=== PATIENT | male | born 1940 | race Caucasian/White ===

== ENCOUNTER 2021-10-14 16:43 | Observation (INO) | payer MEDICARE, OTHER ==
[2021-10-14] MEDS ORDERED: Midazolam 1 MG/ML 2 ML SDV ONE ×2 (16:45→16:53)
[2021-10-14] MEDS ORDERED: levETIRAcetam 1,000 MG in Sodium Chloride 0.9% 100 ML IV ONE (17:00)
[2021-10-14] MEDS ORDERED: Sodium Chloride 0.9% 100 ML IV SCH (17:15)
[2021-10-14] MEDS ORDERED: Midazolam 1 MG/ML 2 ML SDV IVPUSH ONE ×2 (17:15→17:16)
[2021-10-14] MEDS ORDERED: Sodium Chloride 0.9% 10 ML Syringe FLUSH PRN (17:15)
[2021-10-14] MEDS ORDERED: Iopamidol 755 Mg/ML 100 ML Bottle IVPUSH ONE (17:15)
[2021-10-14 17:39] LABS: ESTIMATED GFR 56 mL/min (>60)
[2021-10-14] MEDS ORDERED: Metoprolol Tartrate 50 MG Tab PO SCH (23:45)
[2021-10-15] MEDS ORDERED: traZODone 50 MG Tab PO ONE (00:07)
[2021-10-15] MEDS ORDERED: Docusate Sodium 100 MG Cap PO PRN (07:14)
[2021-10-15] MEDS ORDERED: guaiFENesin 600 MG Tab.ER PO PRN (07:14)
[2021-10-15] MEDS: atorvaSTATin 40 MG Tab PO SCH (08:41)
[2021-10-15] MEDS: Multivitamins with Minerals/Folic Acid/Lutein/Zeaxanth Tab PO SCH (08:41)
[2021-10-15] MEDS: Sertraline 50 MG Tab PO SCH (08:42)
[2021-10-15] MEDS: Aspirin 81 MG Tab.EC PO SCH (08:42)
[2021-10-15] MEDS: Metoprolol Tartrate 50 MG Tab PO SCH ×2 (08:42→20:16)
[2021-10-15] MEDS: Apixaban 5 MG Tab PO SCH ×2 (08:42→20:16)
[2021-10-15] MEDS: Finasteride 5 MG Tab PO SCH (08:42)
[2021-10-15] MEDS: Tamsulosin 0.4 MG Cap.ER PO SCH (08:42)
[2021-10-15] MEDS: Acetaminophen 325 MG Tab PO SCH ×2 (08:45→20:17)
[2021-10-15] MEDS ORDERED: traZODone 50 MG Tab PO SCH (21:00)
[2021-10-15] MEDS ORDERED: Melatonin 3 MG Tab PO PRN (21:00)
[2021-10-16] MEDS: Metoprolol Tartrate 50 MG Tab PO SCH (08:01)
[2021-10-16] MEDS: Acetaminophen 325 MG Tab PO SCH (08:01)
[2021-10-16] MEDS: Sertraline 50 MG Tab PO SCH (08:02)
[2021-10-16] MEDS: Multivitamins with Minerals/Folic Acid/Lutein/Zeaxanth Tab PO SCH (08:02)
[2021-10-16] MEDS: Finasteride 5 MG Tab PO SCH (08:02)
[2021-10-16] MEDS: Apixaban 5 MG Tab PO SCH (08:02)
[2021-10-16] MEDS: atorvaSTATin 40 MG Tab PO SCH (08:02)
[2021-10-16] MEDS: Tamsulosin 0.4 MG Cap.ER PO SCH (08:02)
[2021-10-16] MEDS: Aspirin 81 MG Tab.EC PO SCH (08:02)
== END 2021-10-16 11:52 | disposition home or self-care (01) ==
LOC: JD.ED 16:43 → INTOOBSV 19:18 → JD.MS 19:18
PROVIDERS: ADMIT Internal Medicine Cardiovascular Disease; ATTEND Internal Medicine Cardiovascular Disease
DX: R55 Syncope and collapse (principal); I10 Essential (primary) hypertension; E78.00 Pure hypercholesterolemia, unspecified; H54.7 Unspecified visual loss; I48.91 Unspecified atrial fibrillation; F32.A Depression, unspecified; R56.9 Unspecified convulsions; Z86.73 Personal history of transient ischemic attack (TIA), and cerebral infarction without residual deficits; Z79.82 Long term (current) use of aspirin; Z79.01 Long term (current) use of anticoagulants; N40.0 Benign prostatic hyperplasia without lower urinary tract symptoms
CPT/HCPCS: 36415; 70450; 70496; 70498; 80048; 80053; 80061; 83735; 85025; 85610; 87641; 93005; 96365; 96375; 97163; 99285; A9270; J1953; J2250; Q9967; 93010; 99291; G0378

== ENCOUNTER 2022-05-01 20:45 | Emergency (ER) | payer MEDICARE, OTHER ==
[2022-05-01] MEDS ORDERED: HYDROmorphone 0.5 MG/0.5 ML Syringe IVPUSH ONE ×3 (21:07→22:53)
[2022-05-01] MEDS ORDERED: Metoclopramide 10 MG/2 ML SDV IVPUSH ONE (21:07)
[2022-05-01] MEDS ORDERED: Hyoscyamine 0.125 MG Tab.SL SL ONE (21:09)
[2022-05-01] MEDS ORDERED: Dextrose 5%-0.9% NaCl 1,000 ML IV SCH (21:15)
[2022-05-01 21:48] LABS: ESTIMATED GFR 68 mL/min (>60)
[2022-05-02] MEDS ORDERED: HYDROmorphone 0.5 MG/0.5 ML Syringe IVPUSH ONE (00:02)
[2022-05-02] MEDS ORDERED: LORazepam 2 MG/ML SDV IVPUSH ONE ×4 (01:08→14:13)
[2022-05-02] MEDS ORDERED: Morphine 4 MG/ML Syringe IVPUSH ONE ×2 (02:53→05:05)
[2022-05-02] MEDS ORDERED: Metoclopramide 10 MG/2 ML SDV IVPUSH ONE (02:54)
[2022-05-02] MEDS ORDERED: cefTRIAXone 2 GM in Sodium Chloride 0.9% 100 ML IV ONE (07:29)
[2022-05-02] MEDS ORDERED: OLANZapine 5 MG Tab PO ONE (08:42)
[2022-05-02] MEDS ORDERED: HYDROmorphone 1 MG/ML Syringe IVPUSH ONE ×2 (09:27→14:13)
[2022-05-02] MEDS ORDERED: Ondansetron 4 MG/2 ML SDV IVPUSH ONE (09:28)
[2022-05-02] MEDS ORDERED: Sodium Chloride 0.9% 1,000 ML IV SCH (16:00)
== END 2022-05-02 16:40 ==
LOC: JD.ED 20:45
DX: K81.9 Cholecystitis, unspecified (principal); I48.91 Unspecified atrial fibrillation; E78.00 Pure hypercholesterolemia, unspecified; I10 Essential (primary) hypertension; N40.0 Benign prostatic hyperplasia without lower urinary tract symptoms; M19.90 Unspecified osteoarthritis, unspecified site; Z86.73 Personal history of transient ischemic attack (TIA), and cerebral infarction without residual deficits; Z79.01 Long term (current) use of anticoagulants; Z79.82 Long term (current) use of aspirin; Z79.899 Other long term (current) drug therapy; Z20.822 Contact with and (suspected) exposure to COVID-19
CPT/HCPCS: 36415; 71045; 74176; 76705; 80053; 81001; 82553; 82977; 83605; 83690; 83735; 83880; 84484; 85025; 85610; 85730; 86140; 87086; 93005; 96361; 96365; 96375; 96376; 99285; A9270; J0696; J1170; J2060; J2270; J2405; J2765; J7030; J7042; U0002

== ENCOUNTER 2022-05-29 20:48 | Inpatient (IN) | payer MEDICARE, OTHER ==
[2022-05-29] MEDS ORDERED: Sodium Chloride 0.9% 1,000 ML IV ONE ×2 (21:13→22:37)
[2022-05-29] MEDS ORDERED: Piperacillin/Tazobactam 4.5 GM in Sodium Chloride 0.9% 100 ML IV STA (21:13)
[2022-05-29] MEDS ORDERED: Sodium Chloride 0.9% 10 ML Syringe FLUSH PRN (21:13)
[2022-05-29] MEDS ORDERED: HYDROmorphone 0.5 MG/0.5 ML Syringe IVPUSH ONE (21:47)
[2022-05-29] MEDS ORDERED: Ondansetron 4 MG/2 ML SDV IVPUSH ONE (21:56)
[2022-05-29 22:09] LABS: ESTIMATED GFR 61 mL/min (>60)
[2022-05-29] MEDS ORDERED: Vancomycin 2 GM in Sodium Chloride 0.9% 500 ML IV ONE (22:36)
[2022-05-29] MEDS ORDERED: Lactated Ringers 1,000 ML IV ONE (22:58)
[2022-05-29] MEDS ORDERED: Lactated Ringers 1,000 ML IV SCH (23:45)
[2022-05-30 00:10] LABS: CORONAVIRUS COVID-19 NAA NEGATIVE (NEGATIVE)
[2022-05-30] MEDS ORDERED: Ondansetron 4 MG/2 ML SDV IVPUSH PRN (01:41)
[2022-05-30] MEDS ORDERED: Acetaminophen 325 MG/10.15 ML ML PO PRN (01:45)
[2022-05-30] MEDS: Sodium Chloride 0.9% 1,000 ML IV SCH ×3 (02:12→23:57)
[2022-05-30] MEDS: Acetaminophen 325 MG Tab PO PRN ×3 (04:45→20:01)
[2022-05-30] MEDS: Piperacillin/Tazobactam 4.5 GM in Sodium Chloride 0.9% 100 ML IV SCH ×3 (05:00→21:29)
[2022-05-30] MEDS ORDERED: Docusate Sodium 100 MG Cap PO PRN (06:32)
[2022-05-30] MEDS ORDERED: guaiFENesin 600 MG Tab.ER PO PRN (06:32)
[2022-05-30] MEDS: Apixaban 5 MG Tab PO SCH ×2 (08:01→20:00)
[2022-05-30] MEDS: Multivitamins with Minerals/Folic Acid/Lutein/Zeaxanth Tab PO SCH (08:01)
[2022-05-30] MEDS: Finasteride 5 MG Tab PO SCH (08:01)
[2022-05-30] MEDS: Aspirin 81 MG Tab.EC PO SCH (08:01)
[2022-05-30] MEDS: VANCOmycin 750 MG/150 ML 750 MG in Premix Bag 1 BAG IV SCH ×2 (08:02→20:03)
[2022-05-30] MEDS: Sertraline 50 MG Tab PO SCH (08:02)
[2022-05-30] MEDS: Pantoprazole 40 MG Tab.CR PO SCH (08:02)
[2022-05-30] MEDS: Furosemide 40 MG Tab PO SCH (08:02)
[2022-05-30] MEDS: atorvaSTATin 40 MG Tab PO SCH (08:02)
[2022-05-30] MEDS: Metoprolol Tartrate 50 MG Tab PO SCH ×2 (10:42→20:00)
[2022-05-30] MEDS: Saccharomyces Boulardii (Probiotic) 250 MG Cap PO SCH (13:30)
[2022-05-30] MEDS: Furosemide 20 MG Tab PO SCH (13:36)
[2022-05-30] MEDS: Melatonin 3 MG Tab PO SCH (20:00)
[2022-05-30] MEDS: Tamsulosin 0.4 MG Cap.ER PO SCH (20:01)
[2022-05-30] MEDS: traZODone 50 MG Tab PO SCH (20:01)
[2022-05-30] MEDS: Triamcinolone Acetonide 0.1% Crm 15 GM Tube TOP SCH (20:04)
[2022-05-31] MEDS: Acetaminophen 325 MG Tab PO PRN ×3 (03:01→20:31)
[2022-05-31] MEDS: Pantoprazole 40 MG Tab.CR PO SCH (05:58)
[2022-05-31] MEDS: Piperacillin/Tazobactam 4.5 GM in Sodium Chloride 0.9% 100 ML IV SCH ×3 (05:58→21:54)
[2022-05-31] MEDS: VANCOmycin 750 MG/150 ML 750 MG in Premix Bag 1 BAG IV SCH ×2 (08:19→20:32)
[2022-05-31] MEDS: Apixaban 5 MG Tab PO SCH ×2 (08:20→20:28)
[2022-05-31] MEDS: Sertraline 50 MG Tab PO SCH (08:20)
[2022-05-31] MEDS: Aspirin 81 MG Tab.EC PO SCH (08:20)
[2022-05-31] MEDS: atorvaSTATin 40 MG Tab PO SCH (08:20)
[2022-05-31] MEDS: Metoprolol Tartrate 50 MG Tab PO SCH ×2 (08:20→20:28)
[2022-05-31] MEDS: Finasteride 5 MG Tab PO SCH (08:20)
[2022-05-31] MEDS: Furosemide 40 MG Tab PO SCH (08:20)
[2022-05-31] MEDS: Multivitamins with Minerals/Folic Acid/Lutein/Zeaxanth Tab PO SCH (08:20)
[2022-05-31] MEDS: Saccharomyces Boulardii (Probiotic) 250 MG Cap PO SCH (08:20)
[2022-05-31] MEDS: Triamcinolone Acetonide 0.1% Crm 15 GM Tube TOP SCH ×2 (08:23→20:32)
[2022-05-31] MEDS: Sodium Chloride 0.9% 1,000 ML IV SCH ×2 (11:36→21:55)
[2022-05-31] MEDS: Furosemide 20 MG Tab PO SCH (15:17)
[2022-05-31] MEDS: Melatonin 3 MG Tab PO SCH (20:28)
[2022-05-31] MEDS: Tamsulosin 0.4 MG Cap.ER PO SCH (20:31)
[2022-05-31] MEDS: traZODone 50 MG Tab PO SCH (20:31)
[2022-06-01] MEDS: Pantoprazole 40 MG Tab.CR PO SCH (05:54)
[2022-06-01] MEDS: Piperacillin/Tazobactam 4.5 GM in Sodium Chloride 0.9% 100 ML IV SCH ×2 (05:54→14:45)
[2022-06-01] MEDS: Metoprolol Tartrate 50 MG Tab PO SCH (08:20)
[2022-06-01] MEDS: Saccharomyces Boulardii (Probiotic) 250 MG Cap PO SCH (08:20)
[2022-06-01] MEDS: Finasteride 5 MG Tab PO SCH (08:20)
[2022-06-01] MEDS: Furosemide 40 MG Tab PO SCH (08:20)
[2022-06-01] MEDS: Aspirin 81 MG Tab.EC PO SCH (08:21)
[2022-06-01] MEDS: Sertraline 50 MG Tab PO SCH (08:21)
[2022-06-01] MEDS: Triamcinolone Acetonide 0.1% Crm 15 GM Tube TOP SCH (08:21)
[2022-06-01] MEDS: atorvaSTATin 40 MG Tab PO SCH (08:21)
[2022-06-01] MEDS: Multivitamins with Minerals/Folic Acid/Lutein/Zeaxanth Tab PO SCH (08:21)
[2022-06-01] MEDS: Apixaban 5 MG Tab PO SCH (08:21)
[2022-06-01] MEDS: Furosemide 20 MG Tab PO SCH (14:45)
== END 2022-06-01 15:40 | DRG 871 ==
LOC: JD.ED 20:48 → JD.MS 23:15
PROVIDERS: ADMIT Internal Medicine; ATTEND Internal Medicine
DX: A41.59 Other Gram-negative sepsis (principal); R65.21 Severe sepsis with septic shock; F32.A Depression, unspecified; Z98.890 Other specified postprocedural states; I48.91 Unspecified atrial fibrillation; I10 Essential (primary) hypertension; Z66 Do not resuscitate; R32 Unspecified urinary incontinence; M19.90 Unspecified osteoarthritis, unspecified site; H54.7 Unspecified visual loss; E78.00 Pure hypercholesterolemia, unspecified; N40.1 Benign prostatic hyperplasia with lower urinary tract symptoms; Z79.01 Long term (current) use of anticoagulants; N39.498 Other specified urinary incontinence; Z79.82 Long term (current) use of aspirin; Z79.899 Other long term (current) drug therapy; Z86.73 Personal history of transient ischemic attack (TIA), and cerebral infarction without residual deficits; Z90.49 Acquired absence of other specified parts of digestive tract
CPT/HCPCS: 0241U; 36415; 71045; 80053; 80202; 81001; 83605; 83735; 85007; 85025; 85027; 85610; 86140; 87040; 87077; 87154; 87186; 87641; 94760; 96365; 96366; 96367; 96375; 97161; 97166; 99285; 99222; 99232; 99239; A9270-GY; J1170; J2405; J2543; J3370; J3490; J7030; J7040; J7120

== ENCOUNTER 2022-12-07 08:15 | Day surgery (SDC) | payer MEDICARE, OTHER ==
[~2022-12-07 08:15] MED LIST: Lidocaine 1% PF 2 ML SDV INJECT SCH
[2022-12-07] MEDS: Polymyxin B/Trimethoprim 10 ML Bottle EYELF SCH ×4 (09:15→10:57)
[2022-12-07] MEDS: Brimonidine 0.2% Ophth Soln 5 ML Bottle EYELF SCH ×4 (09:22→10:57)
[2022-12-07] MEDS: Tetracaine HCl/PF 0.5% 4 ML Bottle EYEBOTH SCH ×6 (09:26→10:39)
[2022-12-07] MEDS: Tropicamide 1% Ophth Soln 15 ML Bottle EYELF SCH ×4 (09:30→10:09)
[2022-12-07] MEDS: Phenylephrine 2.5% Ophth Soln 2 ML Bot EYELF SCH ×5 (09:36→10:33)
[2022-12-07] MEDS: Cefuroxime 10 MG/ML SYRINGE EYELF SCH ×2 (10:38→10:56)
[2022-12-07] MEDS: Pilocarpine 4% Ophth Soln 15 ML Bot EYELF SCH ×2 (10:39→10:57)
== END 2022-12-07 11:10 | disposition home or self-care (01) ==
LOC: JD.SDS 08:15
PROVIDERS: ATTEND Ophthalmology
DX: H25.813 Combined forms of age-related cataract, bilateral (principal); H21.81 Floppy iris syndrome; H21.42 Pupillary membranes, left eye; H35.363 Drusen (degenerative) of macula, bilateral; H35.3133 Nonexudative age-related macular degeneration, bilateral, advanced atrophic without subfoveal involvement; H18.413 Arcus senilis, bilateral; H16.103 Unspecified superficial keratitis, bilateral; H16.223 Keratoconjunctivitis sicca, not specified as Sjogren's, bilateral; H43.813 Vitreous degeneration, bilateral; M19.90 Unspecified osteoarthritis, unspecified site; F32.A Depression, unspecified; G47.00 Insomnia, unspecified; I48.91 Unspecified atrial fibrillation; I10 Essential (primary) hypertension; E78.00 Pure hypercholesterolemia, unspecified; N40.1 Benign prostatic hyperplasia with lower urinary tract symptoms; N39.498 Other specified urinary incontinence; Z86.73 Personal history of transient ischemic attack (TIA), and cerebral infarction without residual deficits; Z79.82 Long term (current) use of aspirin; Z79.899 Other long term (current) drug therapy
CPT/HCPCS: 66982; A9270; J0697; V2632; 00142; 99100; J3490

== ENCOUNTER 2023-03-20 20:22 | Emergency (ER) | payer MEDICARE, OTHER ==
[2023-03-20] MEDS ORDERED: Doxycycline Monohydrate 100 MG Cap PO ONE (21:15)
[2023-03-20 21:18] LABS: BASOPHILS PERCENT AUTO 0.1 % (0.0-1.0); EOSINOPHILS PERCENT AUTO 0.1 % (0.0-6.0); HEMATOCRIT 38.1 % (42.0-52.0); HEMOGLOBIN 12.2 gm/dl (14.0-18.0); IMMATURE GRAN ABSOLUTE AUTO 0.13 K/mm3 (0.00-0.05); IMMATURE GRAN PERCENT AUTO 0.8 % (0.0-0.4); LYMPHOCYTES ABSOLUTE AUTO 0.2 K/mm3 (1.0-4.8); LYMPHOCYTES PERCENT AUTO 1.2 % (24.0-44.0); MEAN CORPUSCULAR HEMOGLOBIN 28.9 pg (28.0-32.0); MEAN CORPUSCULAR VOLUME 90.3 fl (83.0-99.0); MEAN PLATELET VOLUME 10.2 fl (9.4-12.4); MONOCYTES ABSOLUTE AUTO 0.7 K/mm3 (0.0-0.8); NEUTROPHILS PERCENT AUTO 93.8 % (41.0-71.0); PLATELET COUNT,PLT 192 K/mm3 (150-400); RED BLOOD CELL COUNT 4.22 M/mm3 (4.52-5.90); WHITE BLOOD CELL COUNT,WBC 17.07 K/mm3 (3.9-11.3)
[2023-03-20 21:28] LABS: CORONAVIRUS COVID-19 NAA NEGATIVE (NEGATIVE); INFLUENZA A NAA NEGATIVE (NEGATIVE)
[2023-03-20 21:40] LABS: A/G RATIO 0.9 (1-2); ALBUMIN 3.4 g/dl (3.4-5.0); ANION GAP 11.6 (5-15); BILIRUBIN TOTAL 0.5 mg/dL (0.2-1.0); BUN/CREATININE RATIO 26.9 (14-18); C-REACTIVE PROTEIN 0.2 mg/dL (<1.0); CALCIUM 9.8 mg/dL (8.5-10.1); CREATININE 1.6 mg/dL (0.7-1.3); EST CRCL DRUG DOSING (CG) 38.57 mL/min; POTASSIUM,K 3.6 mEq/L (3.5-5.1); PROTEIN TOTAL,TP 7.4 g/dl (6.4-8.2)
[2023-03-20 21:45] LABS: LACTIC ACID 1.8 mmol/L (0.4-2.0)
[2023-03-20] MEDS ORDERED: cefTRIAXone 1 GM, Lidocaine 1% 2.1 ML IM ONE ×2 (21:45)
== END 2023-03-20 23:03 ==
LOC: JD.ED 20:22
DX: R50.9 Fever, unspecified (principal); L03.115 Cellulitis of right lower limb; I10 Essential (primary) hypertension; M19.90 Unspecified osteoarthritis, unspecified site; E78.00 Pure hypercholesterolemia, unspecified; Z79.899 Other long term (current) drug therapy; Z79.82 Long term (current) use of aspirin; Z90.49 Acquired absence of other specified parts of digestive tract; Z20.822 Contact with and (suspected) exposure to COVID-19
CPT/HCPCS: 0240U; 36415; 71045; 80053; 83605; 85025; 86140; 96372; 99284; A9270; J0696; J3490

== ENCOUNTER 2023-10-17 14:36 | Emergency (ER) | payer OTHER ==
[2023-10-17 15:25] LABS: BASOPHILS PERCENT AUTO 0.2 % (0.0-1.0); EOSINOPHILS PERCENT AUTO 0.4 % (0.0-6.0); HEMATOCRIT 36.7 % (42.0-52.0); HEMOGLOBIN 11.7 gm/dl (14.0-18.0); IMMATURE GRAN ABSOLUTE AUTO 0.05 K/mm3 (0.00-0.05); IMMATURE GRAN PERCENT AUTO 0.5 % (0.0-0.4); LYMPHOCYTES ABSOLUTE AUTO 0.8 K/mm3 (1.0-4.8); LYMPHOCYTES PERCENT AUTO 9.2 % (24.0-44.0); MEAN CORPUSCULAR HEMOGLOBIN 30.4 pg (28.0-32.0); MEAN CORPUSCULAR HGB CONC 31.9 g/dl (32.0-36.0); MEAN CORPUSCULAR VOLUME 95.3 fl (83.0-99.0); MEAN PLATELET VOLUME 9.7 fl (9.4-12.4); MONOCYTES ABSOLUTE AUTO 1.2 K/mm3 (0.0-0.8); MONOCYTES PERCENT AUTO 13.5 % (0.0-8.0); NEUTROPHILS ABSOLUTE AUTO 6.9 K/mm3 (1.8-7.7); NEUTROPHILS PERCENT AUTO 76.2 % (41.0-71.0); PLATELET COUNT,PLT 187 K/mm3 (150-400); RED BLOOD CELL COUNT 3.85 M/mm3 (4.52-5.90)
[2023-10-17] MEDS: Sodium Chloride 0.9% 10 ML Syringe FLUSH PRN (15:42)
[2023-10-17 15:49] LABS: ALBUMIN 3.3 g/dl (3.4-5.0); ANION GAP 10.4 (5-15); BILIRUBIN TOTAL 0.5 mg/dL (0.2-1.0); BUN/CREATININE RATIO 24.3 (14-18); CALCIUM 9.3 mg/dL (8.5-10.1); CREATININE 1.4 mg/dL (0.7-1.3); EST CRCL DRUG DOSING (CG) 44.07 mL/min; POTASSIUM,K 4.4 mEq/L (3.5-5.1); PROTEIN TOTAL,TP 6.7 g/dl (6.4-8.2)
== END 2023-10-17 17:14 | disposition home or self-care (01) ==
LOC: JD.ED 14:36
DX: R07.89 Other chest pain (principal); I10 Essential (primary) hypertension; I48.91 Unspecified atrial fibrillation; E78.00 Pure hypercholesterolemia, unspecified; Z90.49 Acquired absence of other specified parts of digestive tract; Z79.01 Long term (current) use of anticoagulants; Z79.899 Other long term (current) drug therapy; Z79.82 Long term (current) use of aspirin
CPT/HCPCS: 36415; 71045; 80053; 84484; 85025; 93005; 99285; J3490

== ENCOUNTER 2024-03-22 01:56 | Emergency (ER) | payer MEDICARE, OTHER ==
[2024-03-22] MEDS: Lidocaine 1% 10 ML MDV INJECT ONE (02:24)
[2024-03-22] MEDS ORDERED: Naloxone 0.4 MG/ML SDV IVPUSH PRN (02:59)
[2024-03-22] MEDS: HYDROmorphone 1 MG/ML Syringe IM ONE (03:04)
[2024-03-22] MEDS: Bacitracin Oint 15 GM Tube TOP ONE (04:13)
[2024-03-22] MEDS: Cephalexin 500 MG Cap PO ONE (04:14)
[2024-03-22] MEDS: Lidocaine 4% Crm 5 Gm with Transparent Dressing Kit ONE (04:14)
== END 2024-03-22 08:00 | disposition home or self-care (01) ==
LOC: JD.ED 01:56
DX: S81.811A Laceration without foreign body, right lower leg, initial encounter (principal); I48.91 Unspecified atrial fibrillation; I10 Essential (primary) hypertension; E78.00 Pure hypercholesterolemia, unspecified; M19.90 Unspecified osteoarthritis, unspecified site; Z86.73 Personal history of transient ischemic attack (TIA), and cerebral infarction without residual deficits; Z90.49 Acquired absence of other specified parts of digestive tract; Z79.01 Long term (current) use of anticoagulants; Z79.82 Long term (current) use of aspirin; Z79.899 Other long term (current) drug therapy; W23.1XXA Caught, crushed, jammed, or pinched between stationary objects, initial encounter
CPT/HCPCS: 12034; 96372; 99282; A9270; J1171; J3490